=== PATIENT | female | born 1965 | race Caucasian/White ===

== ENCOUNTER 2017-05-15 09:14 | Emergency (ER) | payer BC, SELFPAY ==
[2017-05-15] MEDS ORDERED: ISOVUE-370 76%-LOCM 1 ML ONE (09:35)
[2017-05-15] MEDS ORDERED: Albuterol Sulfate 2.5 mg/0.5 ml Neb ONE (09:52)
[2017-05-15] MEDS ORDERED: Albuterol Sulfate 2.5 mg/3 ml Neb ONE (09:52)
[2017-05-15] MEDS ORDERED: methylPREDNISolone Sod Succ/PF 125 MG/2 ML VIAL ONE (09:54)
[2017-05-15 10:03] LABS: #Eosinphils 0.3 thou/uL (0.0-0.7); #Lymphocytes 0.4 thou/uL (1.20-3.40); #Monocytes 0.2 thou/uL (0.11-0.59); #Neutrophils 9.2 thou/uL (1.40-6.50); %Basophils 0.2 % (0.0-1.0); %Eosinophils 3.1 % (0.0-10.0); %Lymphocytes 4.1 % (21.0-51.0); %Monocytes 2.3 % (0.0-10.0); %Neutrophils 90.4 % (42.0-75.0); Hemoglobin 13.2 g/dL (12.0-16.0); Mean Corpuscular HGB CONC 32.3 g/dL (32.0-36.0); Mean Corpuscular Hemoglobin 28.9 pg (27.0-31.0); Mean Corpuscular Volume 89.5 fl (81.0-99.0); Mean Platelet Volume 7.3 fL (7.4-10.4); Platelet Count 219 thou/uL (130-400); RBC Distribution Width 11.5 % (11.5-14.5); Red Blood Cell (RBC) Count 4.58 mill/uL (4.20-5.40); White Blood Cell (WBC) Count 10.2 thou/uL (4.8-10.8)
[2017-05-15 10:33] LABS: Anion Gap 15 mmol/L (10-20); BUN (Urea Nitrogen) 12 mg/dL (7.0-18.7); CK (CPK) 52 U/L (29-168); Calc. Creatinine Clearance 0 mL/min (70-130); Calcium 9.3 mg/dL (7.8-10.44); Carbon Dioxide 19 mmol/L (22-29); Chloride 108 mmol/L (98-107); Estimated GFR-MDRD Greater than 90; Glucose 116 mg/dL (70-105); Potassium 3.6 mmol/L (3.5-5.1); Sodium 138 mmol/L (136-145)
--- NOTE | 2017-05-15 10:37 | RAD ---
PORTABLE UPRIGHT FRONTAL CHEST RADIOGRAPH: 05/15/2017 HISTORY: Asthma exacerbation. COMPARISON: 08/15/2011 FINDINGS: There is no pneumothorax, pleural fluid, focal consolidation, or alveolar edema. Heart and mediastin al contours are stable. Postoperative clips overly the right lung apex, stable. IMPRESSION: No acute findings. POS: [facility]
[2017-05-15 10:38] LABS: CKMB 1.2 ng/mL (0-6.6); Troponin I Less than 0.010 ng/mL (< 0.028)
--- NOTE | 2017-05-15 15:41 | CT ---
CT ANGIOGRAM CHEST INCLUDING 3D RENDERIN05/15/17 HISTORY: 51-year-old female with history of dyspnea, chest tightness. COMPARISON: 12/12/11. FINDINGS: No significant CT evidence for acute pulmonary embolism. There is some very minimal fine linear and i nterstitial ground glass opacity changes in the left lower lobe not present on the prior study possib ly some very minute pneumonitis versus some developing chronic interstitial change. Small hiatal ruben ia. There are some borderline sized lymph nodes within the mediastinum and hilar regions with 1.0 cm left AP window node, 1.4 cm right paratracheal node, 1.3 cm right hilar node, 1.2 cm subcarinal node, and 1.1 cm left hilar nodes. No pericardial effusion or pleural effusion. IMPRESSION: No significant CT evidence for acute pulmonary embolism. Very subtle area of minimal linear and inter stitial ground glass opacity changes in the left lower lobe, new from the prior study, possibly some mild pneumonitis or interval scarring. Minimally enlarged mediastinal and hilar lymph nodes, more pr ominent in size than on the 12/12/11 study. Small hiatal hernia. Other findings as above. POS: [facility]
== END 2017-05-15 16:50 | disposition home or self-care (01) ==
LOC: ERS 09:14
DX: J45.901 Unspecified asthma with (acute) exacerbation (principal); F32.9 Major depressive disorder, single episode, unspecified; Z79.01 Long term (current) use of anticoagulants; Z79.899 Other long term (current) drug therapy
CPT/HCPCS: 36415; 71045; 71275; 80048; 82553; 84484; 85025; 93005; 94644; 96374; J2930; J7611; J7620

== ENCOUNTER 2018-04-30 23:23 | Emergency (ER) | payer BC, SELFPAY ==
[2018-04-30 23:48] LABS: #Basophils 0.1 thou/uL (0.0-0.2); #Eosinphils 1.3 thou/uL (0.0-0.7); #Lymphocytes 2.8 thou/uL (1.20-3.40); #Monocytes 0.7 thou/uL (0.11-0.59); #Neutrophils 2.9 thou/uL (1.40-6.50); %Basophils 1.1 % (0.0-1.0); %Eosinophils 16.7 % (0.0-10.0); %Lymphocytes 36.1 % (21.0-51.0); %Monocytes 8.9 % (0.0-10.0); %Neutrophils 37.2 % (42.0-75.0); Hemoglobin 14.1 g/dL (12.0-16.0); Mean Corpuscular HGB CONC 31.1 g/dL (32.0-36.0); Mean Corpuscular Hemoglobin 28.1 pg (27.0-31.0); Mean Corpuscular Volume 90.4 fL (78.0-98.0); Mean Platelet Volume 7.3 fL (7.4-10.4); Platelet Count 227 thou/uL (130-400); RBC Distribution Width 11.9 % (11.5-14.5); White Blood Cell (WBC) Count 7.8 thou/uL (4.8-10.8)
--- NOTE | 2018-04-30 23:50 | RAD ---
ONE VIEW CHEST 04/30/18 HISTORY: New onset chest pain. COMPARISON: 05/15/17 FINDINGS: Stable surgical clip in the upper right hemithorax. Normal cardiac silhouette. Lungs and pleural spac es are clear. No pneumothorax or osseous abnormalities. IMPRESSION: No acute cardiopulmonary process. POS: [facility]
[2018-05-01 00:27] LABS: BHCG - Serum Negative (NEGATIVE); Pregs Control Background? CLEAR/WHITE (CLR/WHITE); Pregs Control Bar Appear? YES (CONTROL BAR)
[2018-05-01 00:31] LABS: ALT (SGPT) 24 U/L (8-55); AST (SGOT) 25 U/L (5-34); Albumin 4.8 g/dL (3.5-5.0); Alkaline Phosphatase 79 U/L (40-150); Anion Gap 13 mmol/L (10-20); BUN (Urea Nitrogen) 15 mg/dL (7.0-18.7); Bilirubin, Total 0.6 mg/dL (0.2-1.2); Calc. Creatinine Clearance 0 mL/min (70-130); Carbon Dioxide 23 mmol/L (22-29); Chloride 107 mmol/L (98-107); Estimated GFR-MDRD 84; Globulin 3.1 g/dL (2.4-3.5); Glucose 100 mg/dL (70-105); Potassium 4.3 mmol/L (3.5-5.1); Protein, Total 7.9 g/dL (6.0-8.3); Sodium 139 mmol/L (136-145)
[2018-05-01 03:48] LABS: Troponin I Less than 0.010 ng/mL (< 0.028)
== END 2018-05-01 04:19 | disposition home or self-care (01) ==
LOC: ERS 23:23
DX: R07.89 Other chest pain (principal); F41.9 Anxiety disorder, unspecified; F32.9 Major depressive disorder, single episode, unspecified; J45.909 Unspecified asthma, uncomplicated; Z79.899 Other long term (current) drug therapy; Z79.51 Long term (current) use of inhaled steroids
CPT/HCPCS: 71045; 80053; 84439; 84443; 84484; 84703; 85025; 85379; 93005